=== PATIENT | female | born 1975 ===

== ENCOUNTER → 2024-12-27 11:28 | Outpatient (REF) | payer BC, SELFPAY | LOC: MRI 3T 11:28 | PROVIDERS: ATTENDING PHYSICIAN Otolaryngology Plastic Surgery within the Head & Neck; FAMILY PHYSICIAN Internal Medicine | DX: G44.1 Vascular headache, not elsewhere classified (principal); M26.602 Left temporomandibular joint disorder, unspecified; H69.93 Unspecified Eustachian tube disorder, bilateral | CPT/HCPCS: 70553; A9575 ==